=== PATIENT | female | born 1980 | race American Indian/Alaskan Native ===

== ENCOUNTER 2020-09-26 15:43 | Inpatient (IN) | payer OTHER ==
[2020-09-26 16:49] LABS: Basophils % (Auto) 0.2 % (0.0-1.8); Eosinophils % (Auto) 0.5 % (0.0-4.3); Hematocrit 33.5 % (30.3-42.9); Hemoglobin 11.9 gm/dl (10.1-14.3); Lymphocytes # (Auto) 1.7 K/mm3 (1.2-5.4); Lymphocytes % (Auto) 28.9 % (13.4-35.0); Mean Corpuscular HGB Conc 36 % (30-34); Mean Corpuscular Volume 103 fl (79-97); Monocytes # (Auto) 0.6 K/mm3 (0.0-0.8); Monocytes % (Auto) 9.9 % (0.0-7.3); Platelet Count 142 K/mm3 (140-440); Red Blood Count 3.25 M/mm3 (3.65-5.03); Red Cell Distribution Width 14.2 % (13.2-15.2)
[2020-09-26] MEDS ORDERED: BUTORPHANOL 2 MG/1 ML INJ IV PRN (16:59)
[2020-09-26] MEDS ORDERED: LIDOCAINE (2%) 20 MG/1 ML VIAL 20 ML MDV INFILTRATI NR (16:59)
[2020-09-26] MEDS ORDERED: DINOPROSTONE 10 MG VAG SUPP VG NR (16:59)
[2020-09-26] MEDS ORDERED: AMPICILLIN/NS 2 GM/100 ML 2 GM/100 ML BAG IV ONE (16:59)
[2020-09-26] MEDS ORDERED: TERBUTALINE 1 MG/1 ML INJ SUB-Q PRN (17:00)
[2020-09-26] MEDS ORDERED: fentaNYL 100 MCG/2 ML INJ IV PRN (17:00)
[2020-09-26] MEDS ORDERED: ACETAMINOPHEN 325 MG TAB PO PRN (17:00)
[2020-09-26] MEDS ORDERED: ePHEDrine SULFATE 50 MG/1 ML INJ IV PRN (17:00)
[2020-09-26] MEDS ORDERED: ONDANSETRON 4 MG/2 ML INJ IV PRN (17:00)
[2020-09-26] MEDS ORDERED: NalbUPHINE 10 MG/1 ML INJ IV PRN (17:00)
--- NOTE | 2020-09-26 17:57 | Ultrasound Report ---
US OB limited INDICATION: TO CONFIRM PRESENTATION. TECHNIQUE: Transabdominal. COMPARISON: None available. FINDINGS: There is a single intrauterine . Placental location is anterior fundal. Heart Rate: 123 beats per minute. Position: cephalic. IMPRESSION: 1. Position: cephalic. Signer Name: Isaac Shah MD Signed: 09/26/2020 5:52 PM Workstation Name: [id number]
[2020-09-26] MEDS ORDERED: MINERAL OIL 30 ML ORAL LIQD PO PRN (22:00)
[2020-09-27] MEDS: LACTATED RINGERS 1,000 ML IV SCH ×3 (02:45→16:16)
--- NOTE | 2020-09-27 11:52 | History and Physical Report ---
History of Present Illness Date of examination: 09/27/20 Date of admission: 09/26/20 15:43 History of present illness: Patient is a 40-year-old -0-1-0 at 38 weeks and 3 days today who was brought in yesterday for induction of labor for chronic hypertension. Blood pressures have been stable here in the hospital with labetalol 100 mg twice daily. Of note, patient had a vanishing twin around 12 to 13 weeks gestation. Patient received a Cervidil last night. It was removed earlier this morning due to concerns about the heart tracing and the minimal variability that she had. Her cervix was closed at that time. The variability improved and patient was scheduled to have another Cervidil but then patient had another prolonged period of time with minimal long-term variability. Patient has had no pain medication. Past History Past Medical History: hypertension, other (depression 2014) Past Surgical History: no surgical history [employer] History: herpes Social history: no significant social history - Obstetrical History : 2 Hx # Term Pregnancies: 0 Spontaneous Abortions: 1 Number of Living Children: 0 Medications and Allergies Allergies Allergy/AdvReac Type Severity Reaction Status Date / Time No Known Allergies Allergy Unverified 09/26/20 16:37 Home Medications Medication Instructions Recorded Confirmed Last Taken Type Vit-Fe Fumar-FA [ 1 tab PO QDAY 09/26/20 09/26/20 09/26/20 History Vitamin] labetaloL [Labetalol 100mg TAB] 100 mg PO BID 09/26/20 09/26/20 09/26/20 History Active Meds: Active Medications Acetaminophen (Tylenol) 650 mg PO Q4H PRN PRN Reason: Pain, Mild (1-3) Butorphanol Tartrate (Stadol) 2 mg IV Q2H PRN PRN Reason: Pain , Severe (7-10) Dinoprostone (Cervidil) 10 mg VG ONCE NR Stop: 09/27/20 16:58 Last Admin: 09/26/20 18:20 Dose: 10 mg Documented by: Ephedrine Sulfate (Ephedrine Sulfate) 10 mg IV Q2M PRN PRN Reason: Hypotension Fentanyl (Sublimaze) 100 mcg IV Q2H PRN PRN Reason: Pain,Severe (7-10) LABOR PAIN Lactated Ringer's (Lactated Ringers) 1,000 mls @ 125 mls/hr IV DIRECT [facility] Last Admin: 09/27/20 08:49 Dose: 125 mls/hr Documented by: Labetalol HCl (Labetalol) 100 mg PO BID [facility] Last Admin: 09/26/20 22:06 Dose: 100 mg Documented by: Mineral Oil (Mineral Oil) 30 ml PO QHS PRN PRN Reason: Constipation Nalbuphine HCl (Nalbuphine) 10 mg IV Q2H PRN PRN Reason: Pain, Moderate (4-6) Ondansetron HCl (Zofran) 4 mg IV Q8H PRN PRN Reason: Nausea And Vomiting Terbutaline Sulfate (Brethine) 0.25 mg SUB-Q ONCE PRN PRN Reason: Hyperstimulation/Hypertonicity Review of Systems All systems: negative (except HPI) - Vital Signs Vital signs: Vital Signs Pulse BP 73 141/83 09/26/20 16:08 09/26/20 16:08 Temp Pulse Resp BP Pulse Ox 98.7 F 86 18 119/71 100 09/27/20 08:37 09/27/20 11:43 09/27/20 08:37 09/27/20 10:50 09/27/20 11:43 - Physical Exam Abdomen: Positive: normal appearance, soft. Negative: tenderness - Obstetrical FHR comments: prolonged stretches of minimal LTV with occasional moments of good LTV. Uterine Contraction Pattern: Irregular Results Result Diagrams: 09/26/20 16:15 Abnormal lab results 09/26/20 Range/Units 16:15 RBC 3.25 L (3.65-5.03) M/mm3 MCV 103 H (79-97) fl MCH 37 H (28-32) pg MCHC 36 H (30-34) % [place] % (Auto) 9.9 H (0.0-7.3) % All other labs normal. Assessment and Plan - Patient Problems (1) Chronic hypertension affecting Current Visit: Yes Status: Acute Plan to address problem: Case discussed with the patient at length. Risk benefits and alternatives of continuing the induction of labor were discussed with the patient. After reviewing her options, patient elects to stop the induction of labor and proceed with a primary low transverse . Patient fully consented for the surgery. Risks, benefits, and alternatives were all discussed with the patient including risk of bleeding, infection, and potential for injury. Patient understands and accepts these risks. Patient agrees to proceed with surgery. All questions were answered.
[2020-09-27] MEDS ORDERED: METOCLOPRAMIDE 10 MG/2 ML INJ IV ONE (11:54)
[2020-09-27] MEDS ORDERED: FAMOTIDINE 20 MG/2 ML INJ IV ONE (11:54)
[2020-09-27] MEDS ORDERED: BICITRA ORAL LIQD 30ML PO ONE (11:54)
--- NOTE | 2020-09-27 11:54 | Anesthesia Consultation ---
Anesthesia Consult and Med Hx Date of service: 09/27/20 - Airway Anesthetic Teeth Evaluation: Chipped ROM Head & Neck: Adequate Mental/Hyoid Distance: Adequate Mallampati Class: Class II Intubation Access Assessment: Probably Good - Pulmonary Exam CTA: Yes - Cardiac Exam Cardiac Exam: RRR - Pre-Operative Health Status ASA Pre-Surgery Classification: ASA3 Proposed Anesthetic Plan: Spinal - Pulmonary Hx Asthma: No - Cardiovascular System Hx Hypertension: Yes - Central Nervous System Hx Seizures: No Hx Psychiatric Problems: Yes (Hx depression in 2015) - Endocrine Hx Renal Disease: No Hx Hypothyroidism: No Hx Hyperthyroidism: No - Hematic Hx Anemia: No Hx Sickle Cell Disease: No - Other Systems Hx Alcohol Use: No
--- NOTE | 2020-09-27 11:54 | Anesthesia Day of Surgery ---
Anesthesia Day of Surgery - Day of Surgery Patient Examined: Yes Patient H&P Reviewed: Yes Patient is NPO: Yes
[2020-09-27] MEDS ORDERED: LACTATED RINGERS 1,000 ML IV SCH (12:00)
[2020-09-27] MEDS ORDERED: OXYTOCIN DRIP 30 UNITS/500 ML BAG IV SCH ×2 (12:00→14:00)
[2020-09-27] MEDS ORDERED: OXYTOCIN DRIP 30,000 MILLIUNITS/500 ML BAG IV ONE (12:03)
[2020-09-27] MEDS ORDERED: ceFAZolin/Water 2 GM/20 ML 2 GM/20 ML SYRINGE IV ONE (12:04)
[2020-09-27] MEDS ORDERED: ceFAZolin/STERILE WATER 2 GM/20 ML SYRINGE IV ONE (12:38)
[2020-09-27] MEDS ORDERED: WATER FOR IRRIG STERILE 1,500 ML BOTTLE IR ONE (13:04)
[2020-09-27] MEDS ORDERED: SODIUM CHLORIDE 0.9% IRR 1,500 ML BOTTLE IR ONE (13:04)
[2020-09-27] MEDS ORDERED: dexAMETHasone 20 MG/5 ML VIAL ONE (13:43)
[2020-09-27] MEDS ORDERED: KETOROLAC 30 MG/1 ML INJ ONE (13:43)
[2020-09-27] MEDS ORDERED: ONDANSETRON 4 MG/2 ML INJ ONE (13:43)
[2020-09-27] MEDS ORDERED: BUPIVACAINE/PF (0.5%) 5 MG/1 ML 30 ML VIAL INFILTRATI ONE (13:43)
[2020-09-27] MEDS ORDERED: PHENYLEPHRINE/NS 1,000 MCG/10 ML SYRINGE (OR USE) IV ONE (13:43)
[2020-09-27] MEDS ORDERED: WITCH HAZEL/ GLYCERIN PAD TP PRN (13:48)
[2020-09-27] MEDS ORDERED: NALOXONE 0.4 MG/1 ML INJ IV PRN (13:48)
[2020-09-27] MEDS ORDERED: LANOLIN/ZINC/DIMETHICONE (LANSINOH) 7 GM TP PRN (13:48)
--- NOTE | 2020-09-27 13:48 | Procedure Note ---
OB Delivery Note - Delivery Date of Delivery: 09/27/20 Surgeon: LUBA CANTOR Estimated blood loss: other (700cc) - Section Preop diagnosis: nonreassuring FHR tracing Postop diagnosis: same section procedure: section, primary low transverse Disposition: PACU Complications: none Narrative: Indication: 40-year-old -0-1-0 at 38 weeks and 3 days with a nonreassuring heart tracing early in her induction process. Patient desired to stop the induction of labor and proceed with primary low transverse Findings: Normal uterus, tubes and ovaries. Clear fluid. No nuchal cord. Procedure: Patient taken to the operating room and prepped and draped in the usual fashion. Pfannenstiel skin incision was made and carried down to the underlying fascia. Fascia was incised and the incision was extended bilaterally. Rectus fascia dissected off the rectus muscle both superiorly and inferiorly. Peritoneum identified tented up and entered. Peritoneal incision extended superiorly and inferiorly with good visualization of the bladder. Bladder blade was placed. Uterine incision was made and the incision was extended bilaterally. The baby was delivered from in the typical vertex fashion. Baby bulb suctioned at the incision site and again after delivery. Cord was delayed clamped and cut and handed off to waiting team. The placenta was delivered spontaneously. The uterus was exteriorized and cleared of all clots and debris. Uterine incision closed with 0 Vicryl in a running locked fashion followed by a second imbricating layer of 0 Vicryl. Good hemostasis was noted. Her urine was clear. Uterus tubes and ovaries were returned to the abdominal cavity. Gutters were cleared of all clots and debris and the pelvis was well irrigated. Good hemostasis noted. Interceed placed over the uterine incision and over the lower uterine segment in the midline. Attention was turned to the rectus fascia which was reapproximated with 0 Vicryl in a running fashion. Subcutaneous tissue was irrigated and reapproximated with 2-0 Vicryl in a running fashion. Skin was closed with 4-0 Vicryl in a subcuticular fashion followed by Dermabond. The procedure was concluded at this point and the patient tolerated the procedure well. All instrument and lap counts were correct. - Infant A at 1 minute: 8 at 5 minutes: 9 Infant Gender: Male
[2020-09-27] MEDS ORDERED: SENNOSIDES 8.6 MG TAB PO PRN (13:50)
[2020-09-27] MEDS ORDERED: ONDANSETRON 4 MG/2 ML INJ IV PRN (13:50)
[2020-09-27] MEDS ORDERED: SIMETHICONE 80 MG CHEW TAB PO PRN (13:50)
[2020-09-27] MEDS ORDERED: MAGNESIUM HYDROXIDE (MOM) ORAL LIQD UDC PO PRN (13:50)
[2020-09-27] MEDS ORDERED: OXYTOCIN 10 UNIT/1 ML INJ ONE (14:00)
--- NOTE | 2020-09-27 14:26 | Post Anesthesia Evaluation ---
- Post Anesthesia Evaluation Patient Participated: Yes Airway Patent: Yes Stable Respiratory Function: Yes Nausea/Vomiting: No Temp > 96.8F: Yes Pain Manageable: Yes Adequeate Hydration: Yes Anesthesia Complications: No Block Receding Appropriately: Yes
--- NOTE | 2020-09-27 14:27 | Progress Note ---
Regional Anesthesia Block - Regional Anesthesia Block Start Time: 14:00 Stop Time: 14:05 Performed By:: EVELIA REYNOSO Procedure: U/S guided bilateral tap block performed for post-operative pain requested by Dr. Hernandez. H&P & labs reviewed. Procedure explained, questions answered, consent obtained. Patient in the supine position with ekg, blood pressure cuff and pulse ox on and working in PACU. Timeout performed immediately before start of procedure. Probe placed in the mid-axillary line and the external oblique, internal oblique, and transverse abdominus muscles identified. Skin was cleansed with 0.5% Chlorahexadine and allowed to dry. A 4" 20 G Hamilton echogenic needle was advanced in plane until the tip was in the fascial plane between the internal oblique and the transverse abdominus. After negative aspiration 35 ml/side of [30 ml 0.5% Bupivacaine], [50 mcg dexmedetomidine], [10 mg dexamethasone], and [40 ml sterile saline] was injected in 5 ml increments with negative aspiration in between. Patient tolerated procedure well. Tye UP
[2020-09-27 19:21] LABS: Basophils # (Auto) 0.1 K/mm3 (0.0-0.1); Basophils % (Auto) 0.4 % (0.0-1.8); Hemoglobin 12.2 gm/dl (10.1-14.3); Lymphocytes # (Auto) 1.1 K/mm3 (1.2-5.4); Lymphocytes % (Auto) 8.6 % (13.4-35.0); Mean Corpuscular HGB Conc 34 % (30-34); Mean Corpuscular Volume 104 fl (79-97); Monocytes # (Auto) 0.4 K/mm3 (0.0-0.8); Platelet Count 159 K/mm3 (140-440); Red Blood Count 3.46 M/mm3 (3.65-5.03); Red Cell Distribution Width 13.8 % (13.2-15.2)
[2020-09-27] MEDS: KETOROLAC 30 MG/1 ML INJ IV PRN (23:03)
[2020-09-28] MEDS: oxyCODONE /ACETAMINOPHEN 5-325MG TAB PO PRN ×3 (00:47→23:22)
[2020-09-28] MEDS: KETOROLAC 30 MG/1 ML INJ IV PRN (04:50)
[2020-09-28] MEDS ORDERED: DIPHtheria,PERTUSSIS(ACELL),TETANUS VACCINE/PF 0.5 ML VIAL IM ONE (06:00)
--- NOTE | 2020-09-28 10:24 | Progress Note ---
Assessment and Plan POD # 1 A: S/P Primary LTCS p: Cont monitoring Encourage ambulation Pain med prn D/C home within 24-48 hrs if stable - Patient Problems (1) Status post primary low transverse section Current Visit: Yes Status: Acute Subjective - Subjective Date of service: 09/28/20 Principal diagnosis: s/p LTCS Patient reports: appetite normal, voiding normally, pain well controlled, ambulating normally, other (No gas yet) [place]: bottle feeding Objective - Vital Signs Latest vital signs: Vital Signs Temp Pulse Resp BP BP Pulse Ox 09/28/20 07:49 98.4 F 77 20 138/80 96 09/28/20 04:43 98.0 F 81 20 127/75 97 09/28/20 01:07 97.9 F 68 20 132/80 96 09/28/20 00:05 72 121/79 09/27/20 22:00 76 133/76 09/27/20 20:32 98.6 F 77 20 141/87 99 09/27/20 15:30 97.6 F 65 18 143/82 98 09/27/20 14:54 61 19 144/83 99 09/27/20 14:45 58 L 19 148/97 99 09/27/20 14:30 60 21 145/100 99 09/27/20 14:15 60 20 142/96 99 09/27/20 14:06 71 21 140/93 99 09/27/20 14:00 66 21 113/71 99 09/27/20 13:55 69 20 116/65 99 09/27/20 13:52 97.7 F 73 17 113/56 99 09/27/20 11:53 95 H 100 09/27/20 11:48 84 99 09/27/20 11:43 86 100 09/27/20 11:38 85 100 09/27/20 11:33 78 100 09/27/20 11:28 80 100 09/27/20 11:23 77 100 09/27/20 11:18 77 99 09/27/20 11:13 77 99 09/27/20 11:08 77 100 09/27/20 11:03 79 100 09/27/20 10:58 75 99 09/27/20 10:53 81 99 09/27/20 10:50 80 119/71 09/27/20 10:48 85 99 09/27/20 10:47 57 L 93 Intake and Output 09/27/20 09/28/20 09/28/20 22:59 06:59 14:59 Intake Total 1421.25 480 Output Total 700 300 Balance 721.25 180 Intake: IV 1181.25 Lactated Ringers 1,000 ml 931.25 @ 125 mls/hr IV DIRECT [facility] Rx#:[id number] Oral 240 480 Output: Urine 700 300 Indwelling Catheter 300 Other: Total, Intake Amount 240 240 Total, Output Amount 300 - Exam Breasts: Present: normal Abdomen: Present: normal appearance, soft, normal bowel sounds Vulva: both: normal Uterus: Present: normal, firm, fundal height below umbilicus Extremities: Present: normal Incision: Present: normal, dry, intact, dressed - Labs Labs: Abnormal lab results 09/27/20 Range/Units 19:09 WBC 13.0 H (4.5-11.0) K/mm3 RBC 3.46 L (3.65-5.03) M/mm3 MCV 104 H (79-97) fl MCH 35 H (28-32) pg Lymph % (Auto) 8.6 L (13.4-35.0) % Lymph # (Auto) 1.1 L (1.2-5.4) K/mm3 Seg Neutrophils % 88.0 H (40.0-70.0) % Seg Neutrophils # 11.4 H (1.8-7.7) K/mm3
[2020-09-28 14:37] LABS: Hematocrit 31.6 % (30.3-42.9); Hemoglobin 10.9 gm/dl (10.1-14.3)
[2020-09-28] MEDS: IBUPROFEN 800 MG TAB PO PRN (18:03)
[2020-09-29] MEDS: IBUPROFEN 800 MG TAB PO PRN (06:12)
--- NOTE | 2020-09-29 10:46 | Discharge Summary ---
Providers - Providers Date of Admission: 09/26/20 15:43 Date of discharge: 09/29/20 Attending physician: LUAB CANTOR Primary care physician: LUBA CANTOR Hospitalization Reason for admission: induction of labor Delivery: Procedure: primary low transverse Episiotomy: none Laceration: none Incision: dry, intact Other procedures: none complications: none Discharge diagnosis: IUP at term delivered, other (Anemia) [place] baby: male Hospital course: See admission H & P; OB operative notes and PP progress notes Condition at discharge: Good Disposition: DC-30 STILL A PATIENT - Discharge Diagnoses (1) Status post primary low transverse section Status: Acute (2) Anemia Status: Acute Qualifiers: Anemia type: other cause Other causes of anemia: acute posthemorrhagic Qualified Code(s): D62 - Acute posthemorrhagic anemia Comment: Asymptomatic Plan - Discharge Medications Prescriptions: labetaloL [Labetalol 100mg TAB] 100 mg PO BID 14 Days #28 tablet Ibuprofen [Motrin 800 MG tab] 800 mg PO Q6H PRN #30 tablet PRN Reason: Pain, Mild (1-3) oxyCODONE /ACETAMINOPHEN [Percocet 5/325 mg] 1 tab PO Q6H PRN #30 tablet PRN Reason: Pain, Moderate (4-6) - Provider Discharge Summary Activity: routine, no sex for 6 weeks, no heavy lifting 4 weeks, no strenuous exercise Diet: other (Iron rich diet) Instructions: routine Additional instructions: [] Smoking cessation referral if applicable(refer to patient education folder for contact #) [] Refer to [facility]'s [facility] Booklet Call your doctor immediately for: * Fever > 100.5 * Heavy vaginal bleeding ( >1 pad per hour) * Severe persistent headache * Shortness of breath * Reddened, hot, painful area to leg or breast * Drainage or odor from incision. * Keep incision clean and dry at all times and follow doctor's instructions regarding bathing/showering * F/U at office in 1 week for B/P check - Follow up plan Follow up: LUBA CANTOR MD [Primary Care Provider] - 7 Days Forms: [facility] Discharge Summary
[2020-09-29 18:57] VITALS: BP 128/79
== END 2020-09-29 16:30 | disposition home or self-care (01) | DRG 765 ==
LOC: UNDOADMIN 15:43 → LD 15:43 → OB 09-27 15:33 → UNDODISIN 09-29 16:30
PROVIDERS: ADMIT Obstetrics & Gynecology; ATTEND Obstetrics & Gynecology
PROC: 10D00Z1 Extraction of Products of Conception, Low, Open Approach (ICD-10-PCS; principal; 2020-09-27)
PROC: 3E0234Z Introduction of Serum, Toxoid and Vaccine into Muscle, Percutaneous Approach (ICD-10-PCS; 2020-09-28)
DX: O76 Abnormality in fetal heart rate and rhythm complicating labor and delivery (principal); O10.92 Unspecified pre-existing hypertension complicating childbirth; D62 Acute posthemorrhagic anemia; O99.344 Other mental disorders complicating childbirth; F32.9 Major depressive disorder, single episode, unspecified; Z20.828 Contact with and (suspected) exposure to other viral communicable diseases; O99.02 Anemia complicating childbirth; Z3A.38 38 weeks gestation of pregnancy; Z37.0 Single live birth; Z79.899 Other long term (current) drug therapy
CPT/HCPCS: 36415; 59200; 76815; 85014; 85018; 85025; 86592; 86850; 86900; 86901; 90471; 90715; G0378; C1765; J0690; J1100; J1885; J2370; J2405; J2590; J2765; J3490; J7120; U0003